=== PATIENT | female | born 1945 | race Two or more races ===

== ENCOUNTER 2020-03-20 06:44 | Day surgery (SDC) | payer OTHER ==
[2020-03-20] MEDS ORDERED: MACROBID 100 M100 MG PO (14:10)
[2020-03-20] MEDS ORDERED: ULTRACET PO (14:10)
== END 2020-03-20 18:00 | disposition home or self-care (01) ==
LOC: CIR.AMB 06:44 → ADM 11:45 → CIR.AMB 11:45
PROVIDERS: ATTEND Obstetrics & Gynecology Gynecology
DX: N81.3 Complete uterovaginal prolapse (principal); Z20.828 Contact with and (suspected) exposure to other viral communicable diseases